=== PATIENT | female | born 2000 | race Caucasian/White ===

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

== ENCOUNTER 2020-10-24 11:53 | Emergency (ER) | payer OTHER, SELFPAY ==
[2020-10-24 12:01] VITALS: BP 128/72; PULSE 92; RESP 18; TEMP 36.9; O2SAT 100
--- NOTE | 2020-10-24 12:12 | ED.DENTAL ---
HPI - Dental/Oral General Chief complaint: Dental/Oral Stated complaint: facial swelling Time Seen by Provider: 10/24/20 12:04 Source: patient and RN notes reviewed Mode of arrival: ambulatory Limitations: no limitations History of Present Illness HPI Narrative: Patient presents today complaining of facial swelling x3 days to the right face. Denies dental pain, injury, sore throat, difficulty swallowing. She currently rates her pain 10/10. She has tried Orajel and salt water gargles without relief. Related Data Home Medications Medication Instructions Recorded Confirmed norethindrone-e.estradiol-iron 1 tablet PO DAILY 10/24/20 10/24/20 [07/07 (28)] Allergies Allergy/AdvReac Type Severity Reaction Status Date / Time No Known Allergies Allergy Verified 10/24/20 11:59 Review of Systems Review of Systems: Narrative: CONSTITUTIONAL: Denies body aches, fever, chills, or sweats. EYES: Denies visual changes, redness, or discharge. ENT: Denies rhinorrhea, congestion, sore throat, or otalgia.+ Facial swelling CARDIOVASCULAR: Denies chest pain, palpitations, or edema. RESPIRATORY: Denies cough or dyspnea. GASTROINTESTINAL: Denies abdominal pain, nausea, vomiting, or diarrhea. GENITOURINARY: Denies dysuria or hematuria. SKIN: Denies rash, itching, or wounds. MUSCULOSKELETAL: Denies back pain, joint pain, or myalgia. NEUROLOGIC: Denies headache, numbness, tingling, or weakness. PSYCH: Denies depression or anxiety. PMFSH Comments At time of signature, I have reviewed and agree with nursing past medical, surgical, social and family history unless otherwise noted. Please see nursing chart for further information. There is no relevant family history pertinent to the presenting complaint Exam Narrative: Exam Narrative: GENERAL: Well-appearing, well-nourished, and in no acute distress. HEAD: Normocephalic, atraumatic. No swelling noted to the external face. EYES: EOMI. No redness or drainage. Conjunctivae normal. ENT: Mucous membranes pink and moist. 3 cluster of 3 aphthous ulcers noted to the right lower inner lip. No tenderness or edema noted to the cheek, inner or outer aspect. No tenderness to the right upper or lower teeth. There is a portion of the swollen gumline that is overlying tooth #32 that is erythematous with a small aphthous ulcer. This area is tender to palpation and bleeds slightly with palpation. Nares clear. No rhinorrhea. TMs normal bilaterally. Throat normal. Uvula midline. NECK: Normal AROM. Supple. No lymphadenopathy. CHEST: No respiratory distress. EXTREMITIES: Normal range of motion. No edema. SKIN: Warm, dry, no rash. Capillary refill normal. Normal skin turgor. NEURO: No focal deficits. Alert and oriented x3. Gait steady. PSYCH: Normal affect. No signs of depression or anxiety. Course Vital Signs Vital signs: Vital Signs Temperature 98.4 F 10/24/20 12:01 Pulse Rate 92 10/24/20 12:01 Respiratory Rate 18 10/24/20 12:01 Blood Pressure 128/72 10/24/20 12:01 Pulse Oximetry 100 10/24/20 12:01 Temperature 98.4 F 10/24/20 12:01 Pulse Rate 92 10/24/20 12:01 Respiratory Rate 18 10/24/20 12:01 Blood Pressure 128/72 10/24/20 12:01 Pulse Oximetry 100 10/24/20 12:01 Reviewed. Pt has been instructed to follow up with her PCP regarding her elevated blood pressure today. MDM - Dental/Oral Differential Diagnosis Differential diagnosis: Likely gingival abscess, dental caries, toothache, dental abscess, fracture of tooth and aphthous ulcer Critical Care Time Critical Care Time Critical Care Time: No Discharge Plan Discharge Clinical Impression: Lesion of mouth Patient Disposition: Home, Self-Care Condition: Stable Instructions: Antibiotic Form, Canker Sores (ED) Additional Instructions: Please take the amoxicillin as prescribed until gone. Take an anti-inflammatory at home such as Aleve or ibuprofen to help with pain and swelling.
== END 2020-10-24 12:16 | disposition home or self-care (01) ==
PROVIDERS: Emergency Provider Nurse Practitioner
DX: K13.70 Unspecified lesions of oral mucosa (principal)
CPT/HCPCS: 99213; G0463

== ENCOUNTER 2020-12-18 10:00 | Emergency (ER) | payer OTHER, SELFPAY ==
[2020-12-18 10:18] VITALS: BP 129/67; PULSE 85; RESP 14; TEMP 36.6; O2SAT 100
--- NOTE | 2020-12-18 10:40 | ED.SKABFB ---
HPI - Skin/Abscess/Foreign Bdy General Chief complaint: Skin/Abscess/Foreign Body Stated complaint: left foot stung by 2 yellowjackets Source: patient Mode of arrival: ambulatory Limitations: no limitations History of Present Illness HPI narrative: Patient is a 20-year-old female who presents with left foot pain and swelling. Patient reports wearing shoes yesterday and there were two bees in shoe. Patient reports she was stung. Patient reports increased pain and swelling to left foot this am. Patient denies other injuries. Reports using ice and Benadryl with limited relief. Patient denies significant medical history. MD complaint: insect bite/sting Related Data Home Medications Medication Instructions Recorded Confirmed norethindrone-e.estradiol-iron 1 tablet PO DAILY 10/24/20 12/18/20 [07/07 (28)] Allergies Allergy/AdvReac Type Severity Reaction Status Date / Time No Known Allergies Allergy Verified 12/18/20 10:35 Review of Systems Review of Systems: Narrative: CONSTITUTIONAL: Denies fever, chills, or sweats. EYES: Denies visual changes, redness, or discharge. ENT: Denies rhinorrhea, congestion, sore throat, or otalgia. CARDIOVASCULAR: Denies chest pain, palpitations, or edema. RESPIRATORY: Denies cough or dyspnea. GASTROINTESTINAL: Denies abdominal pain, nausea, vomiting, or diarrhea. GENITOURINARY: Denies dysuria or hematuria. SKIN: Denies rash or itching. Reports swelling the left foot MUSCULOSKELETAL: Denies back pain, joint pain, or myalgia. NEUROLOGIC: Denies headache, numbness, dizziness, or weakness. PSYCHIATRIC: Denies anxiety or depression. [facility] Social History Social History (Updated 12/18/20 @ 11:21 by GRISELDA Tidwell) Smoking status: Never smoker Alcohol intake: never Substance use: never Living arrangements: with family Comments At the time of signature, I have reviewed and agree with nursing past medical, surgical, social, and family history unless otherwise noted. Please see nursing chart for further information. There is no relevant family history pertinent to the presenting complaint. Exam Narrative: Exam Narrative: GENERAL: Well-appearing, well-nourished, and in no acute distress. HEAD: Normocephalic, atraumatic. EYES: EOMI. No redness or drainage. ENT: Mucous membranes pink and moist. . CHEST: No respiratory distress. HEART: Regular rate and rhythm. No murmur appreciated. Normal peripheral pulses. EXTREMITIES: Normal range of motion. Edema and mild erythema to left lateral foot. Distal sensation intact, good pedal pulse, good capillary refill SKIN: Warm, dry, no rash. NEURO: No focal deficits. Alert and oriented x3. Gait steady. PSYCH: Normal affect. No signs of depression or anxiety. Course Vital Signs Vital signs: Vital Signs Temperature 36.6 C 12/18/20 10:18 Pulse Rate 85 12/18/20 10:18 Respiratory Rate 14 12/18/20 10:18 Blood Pressure 129/67 12/18/20 10:18 Pulse Oximetry 100 12/18/20 10:18 Temperature 36.6 C 12/18/20 10:18 Pulse Rate 85 12/18/20 10:18 Respiratory Rate 14 12/18/20 10:18 Blood Pressure 129/67 12/18/20 10:18 Pulse Oximetry 100 12/18/20 10:18 MDM - Skin/Abscess/Foreign Bdy MDM Narrative Medical decision making narrative: Patient is afebrile and nontoxic in appearance. Patient has edema to left foot from insect sting. Patient to continue to take Benadryl for relief, use ice for comfort. Patient started on prednisone at this time. Patient is aware of red flags and reasons to return or go to the emergency department. Patient is stable for discharge home with outpatient follow-up as discussed. Differential Diagnosis Differential diagnosis: Likely abscess of skin or subcutaneous tissue, viral exanthem, urticaria, cellulitis and insect bites Critical Care Time Critical Care Time Critical Care Time: No Discharge Plan Discharge Clinical Impression: Insect bites Qualifiers: Encounter type: i
== END 2020-12-18 10:58 | disposition home or self-care (01) ==
PROVIDERS: Emergency Provider Nurse Practitioner
DX: T63.461A Toxic effect of venom of wasps, accidental (unintentional), initial encounter (principal)
CPT/HCPCS: 99213; G0463

== ENCOUNTER 2021-01-19 17:11 | Emergency (ER) | payer OTHER, SELFPAY ==
[2021-01-19 17:17] VITALS: BP 122/64; PULSE 106; RESP 18; TEMP 37.2; O2SAT 100
--- NOTE | 2021-01-19 17:49 | ED.EAR ---
HPI - Ear Problem General Chief complaint: Ear Stated complaint: Possible Ear Infection Time Seen by Provider: 01/19/21 17:49 Source: patient and RN notes reviewed Mode of arrival: ambulatory Limitations: no limitations History of Present Illness HPI Narrative: 20-year-old female presents with concern for right ear pain. Reports pain started this morning. She denies nasal congestion, rhinorrhea, drainage from the ear, foreign body, fever. Reports slightly decreased hearing. Denies intervention MD Complaint: ear pain Related Data Allergies Allergy/AdvReac Type Severity Reaction Status Date / Time No Known Allergies Allergy Verified 01/19/21 17:42 Review of Systems Review of Systems: CONSTITUTIONAL: Denies malaise, chills, sweats, or fever. EYES: Denies visual changes, redness, or discharge. ENT: Denies rhinorrhea, congestion, sinus pain, and sore throat.. Reports right ear pain CARDIOVASCULAR: Denies chest pain, palpitations, or edema. RESPIRATORY: Denies cough or dyspnea. GASTROINTESTINAL: Denies abdominal pain, nausea, vomiting, diarrhea SKIN: Denies rash or itching. MUSCULOSKELETAL: Denies myalgia. NEUROLOGIC: Denies headache. All systems reviewed & are unremarkable except as noted in HPI and below PMFSH Social History Social History (Updated 12/18/20 @ 11:21 by GRISELDA Tidwell) Smoking status: Never smoker Alcohol intake: never Substance use: never Comments At time of signature, agree with nursing past medical, surgical, social and family history. There is no relevant family history pertinent to the presenting complaint Exam Narrative: GENERAL: Well-appearing, well-nourished, and in no acute distress. HEAD: Normocephalic EYES: PERRLA, conjunctivae clear ENT: Nares clear. Mucous membranes moist. TM pearly gunn with dull light reflex bilaterally; no tragal tenderness. Oropharynx not erythematous without lesions. Tonsils not enlarged and without exudate, no drooling, no hoarseness, no trismus, uvula midline. NECK: Supple. No lymphadenopathy CHEST: Clear to auscultation, breath sounds equal. No wheezing, rhonchi, rales, or stridor. No respiratory distress, speaks in full sentences. HEART: Regular rate and rhythm. No murmur heard. SKIN: Warm, dry, no rash. NEURO: Alert and oriented x3. PSYCH: Normal mood and affect Course Course Emergency Course: Patient is aware of diagnosis, understands and agrees to treatment plan. Anticipatory guidance given. Patient agrees to follow-up as directed and is aware of reasons to seek care at the emergency department. Portions of this record may have been created with voice recognition software Vital Signs Vital signs: Vital Signs Temperature 99 F 01/19/21 17:17 Pulse Rate 106 H 01/19/21 17:17 Respiratory Rate 18 01/19/21 17:17 Blood Pressure 122/64 01/19/21 17:17 Pulse Oximetry 100 01/19/21 17:17 Temperature 99 F 01/19/21 17:17 Pulse Rate 106 H 01/19/21 17:17 Respiratory Rate 18 01/19/21 17:17 Blood Pressure 122/64 01/19/21 17:17 Pulse Oximetry 100 01/19/21 17:17 Reviewed. Medical Decision Making MDM Narrative Medical decision making narrative: Differential diagnosis considered: upper respiratory tract infection, sinusitis, rhinosinusitis, nasopharyngitis. viral pharyngitis, otitis media, otitis externa, eustachian tube dysfunction, foreign body, cerumen impaction. Exam findings show no acute concerns or changes; patient is non-toxic appearing and is in no distress. Patient is appropriate for outpatient treatment and follow-up. Vital Signs Vital Signs: Vital Signs Temperature 99 F 01/19/21 17:17 Pulse Rate 106 H 01/19/21 17:17 Respiratory Rate 18 01/19/21 17:17 Blood Pressure 122/64 01/19/21 17:17 Pulse Oximetry 100 01/19/21 17:17 Temperature 99 F 01/19/21 17:17 Pulse Rate 106 H 01/19/21 17:17 Respiratory Rate 18 01/19/21 17:17 Blood Pressure 122/64 01/19/21 17:17 Pulse Oximetry 100
== END 2021-01-19 18:01 | disposition home or self-care (01) ==
PROVIDERS: Emergency Provider Nurse Practitioner
DX: H69.91 Unspecified Eustachian tube disorder, right ear (principal)
CPT/HCPCS: 99213; G0463

== ENCOUNTER 2021-09-17 15:32 | Emergency (ER) | payer OTHER, SELFPAY ==
--- NOTE | 2021-09-17 15:36 | ED.URI ---
HPI - URI/Sore Throat General Chief Complaint: Upper Respiratory Infection Stated Complaint: runny nose and cough Time Seen by Provider: 09/17/21 15:36 Source: patient and RN notes reviewed History of Present Illness HPI Narrative: Patient is a 21-year-old female who presents the urgent care with complaints of runny nose, cough and headache for the last 3 days. Patient states she has been taking Claritin, cold medication, Tylenol and ibuprofen. Patient denies of any ill contacts. Denies any fever, chills, nausea, vomiting or shortness of breath. No other acute complaints. No acute distress noted. Patient read the plan of care. Some parts of this dictation were generated by voice recognition software and may contain typographical and/or grammatical inaccuracies. Related Data Home Medications Medication Instructions Recorded Confirmed medroxyprogesterone [Depo-Provera] 150 mg IM [id number] 09/17/21 09/17/21 Allergies Allergy/AdvReac Type Severity Reaction Status Date / Time No Known Allergies Allergy Verified 09/17/21 15:57 Review of Systems Review of Systems: CONSTITUTIONAL: Denies fever, chills, or sweats. EYES: Denies visual changes, redness, or discharge. ENT: Reports of nasal congestion, rhinorrhea CARDIOVASCULAR: Denies chest pain, palpitations, or edema. RESPIRATORY: Reports of cough without dyspnea GASTROINTESTINAL: Denies abdominal pain, nausea, vomiting, or diarrhea. GENITOURINARY: Denies dysuria or hematuria. SKIN: Denies rash or itching. MUSCULOSKELETAL: Denies back pain, joint pain, or myalgia. NEUROLOGIC: Reports of intermittent headaches All other systems reviewed are negative, except as documented in HPI. PMFSH Social History Social History (Updated 12/18/20 @ 11:21 by Poppy Miranda, [employer]) Smoking status: Never smoker Alcohol intake: never Substance use: never Comments At the time of my signature, I reviewed and agree with the nursing past medical, surgical, social, and family history. There is no relevant family history pertinent to the patient complaint. Exam Narrative: GENERAL: This is a well-nourished, well-developed patient, in no apparent distress. HEAD: normocephalic, atraumatic. EYES: PERRL. Sclera clear/white. Vision is grossly intact. EARS: External ears normal, auditory canals clear and without drainage, TMs normal without perforation. Hearing grossly intact. NOSE: External nose normal with no obvious nasal discharge, nares without redness, clear to yellow rhinorrhea. THROAT: Mucous membranes moist, posterior pharynx clear. Moderate postnasal drainage NECK: Neck supple CARDIOVASCULAR: Regular rate and rhythm without murmurs, gallops, or rubs. RESPIRATORY: Clear to auscultation. Breath sounds equal bilaterally. No wheezes, rales, or rhonchi. SKIN: warm, intact with no suspicious lesions or rash, good texture and turgor. NEURO: awake, alert, and oriented to person, place and time. There were no obvious focal neurologic abnormalities. EXTREMITIES: No clubbing, cyanosis, or edema. Course Course Level of Care: Express Care Visit Vital Signs Vital signs: Vital Signs Temperature 98.9 F 09/17/21 15:41 Pulse Rate 91 09/17/21 15:41 Respiratory Rate 20 09/17/21 15:41 Pulse Oximetry 98 09/17/21 15:41 Temperature 98.9 F 09/17/21 15:41 Pulse Rate 91 09/17/21 15:41 Respiratory Rate 20 09/17/21 15:41 Pulse Oximetry 98 09/17/21 15:41 Reviewed MDM - URI/Sore Throat MDM Narrative Medical decision making narrative: Advised the patient to use it daily Claritin or Zyrtec in the morning. Use Flonase and Benadryl prior to bedtime. Symptoms are consistent with a common cold and the viral syndrome can last approximately 21 days. Do not sleep with the windows open or a fan. Use a humidifier at night. Increase your water intake and rest. Follow-up with your PCP within 2 to 5 days or for worsening symptoms or failure to improve. Differential Diagnosis Differ
[2021-09-17 15:41] VITALS: BP 131/72; PULSE 91; RESP 20; TEMP 37.2; O2SAT 98
== END 2021-09-17 16:10 | disposition home or self-care (01) ==
PROVIDERS: Emergency Provider Nurse Practitioner Family
DX: J00 Acute nasopharyngitis [common cold] (principal)
CPT/HCPCS: 99213; G0463

== ENCOUNTER 2021-12-09 10:05 | Emergency (ER) | payer OTHER, SELFPAY ==
[2021-12-09 10:09] VITALS: BP 126/64; PULSE 97; RESP 14; TEMP 37.7; O2SAT 98
[2021-12-09 10:16] VITALS: BP 126/64; PULSE 97; RESP 14; TEMP 37.7; O2SAT 98
--- NOTE | 2021-12-09 10:21 | ED.URI ---
HPI - URI/Sore Throat General Chief Complaint: Upper Respiratory Infection Stated Complaint: cough Time Seen by Provider: 12/09/21 10:20 Source: patient Mode of arrival: ambulatory Limitations: no limitations History of Present Illness HPI Narrative: Ms. Shafer is a 21-year-old female patient presenting to the clinic today with complaints of a cough x2 weeks. Patient reports that she is bringing up some yellow phlegm with her cough. She denies any runny nose, nasal congestion, sore throat, fever, or chills. Tested for COVID last week and was negative. MD elicited complaint: cough Related Data Home Medications Medication Instructions Recorded Confirmed medroxyprogesterone 150 mg/mL 150 mg IM [id number] 09/17/21 12/09/21 intramuscular syringe (Depo-Provera) Allergies Allergy/AdvReac Type Severity Reaction Status Date / Time No Known Allergies Allergy Verified 12/09/21 10:14 Review of Systems Review of Systems: Pertinent positives per HPI. Patient denies any fever, chills, rash, headache, visual changes, dizziness, shortness of breath, chest pain, palpitations, nausea, vomiting, diarrhea, constipation, abdominal pain, or any urinary issues. PMFSH Social History Social History Smoking status: Never smoker Alcohol intake: never Substance use: never Comments At the time of my signature, I reviewed and agree with the nursing past medical, surgical, social, and family history. There is no relevant family history pertinent to the patient complaint. Exam Narrative: General: Well-developed, well nourished, in no apparent distress Head: Normocephalic, atraumatic Eyes: Pupils equally round and reactive to light bilaterally, EOM intact, sclera and conjunctive clear, no discharge, lids normal Ears: TMs intact and clear, ear canals clear, no drainage, grossly hearing normal. Nose: Nares patent, clear discharge, no inflammation, no sinus tenderness. Mouth: Oral pharynx without lesions or masses, good dentition, MMM. Neck: Supple, trachea midline, no enlargement of anterior or posterior cervical nodes, no thyroid masses or goiter palpable. Cardio: Regular rate and rhythm, s1 and s2 normal, no murmur appreciated. Resp: Clear to auscultation bilaterally, no rhonchi, rales, wheezing or rubs Course Course Emergency Course: Portions of this record may have been created with voice recognition software. Level of Care: Express Care Visit Vital Signs Vital signs: Vital Signs Temperature 37.7 C H 12/09/21 10:09 Pulse Rate 97 12/09/21 10:09 Respiratory Rate 14 12/09/21 10:09 Blood Pressure 126/64 12/09/21 10:09 Pulse Oximetry 98 12/09/21 10:09 Oxygen Delivery Room Air 12/09/21 10:09 Temperature 37.7 C H 12/09/21 10:16 Pulse Rate 97 12/09/21 10:16 Respiratory Rate 14 12/09/21 10:16 Blood Pressure 126/64 12/09/21 10:16 Pulse Oximetry 98 12/09/21 10:16 Oxygen Delivery Room Air 12/09/21 10:16 Vital signs reviewed MDM - URI/Sore Throat MDM Narrative Medical decision making narrative: As time of visit patient was resting comfortably on the exam table. She reports a productive cough at times. She is currently vaping. Denies any runny nose or congestion. I suspect this cough is from her vaping. We will go ahead and give her a prescription for albuterol inhaler that she has periods of coughing and shortness of breath. Supportive measures were discussed with the patient and she was advised to quit vaping. She voiced understanding of discharge instructions and agreed to the treatment plan. Differential Diagnosis Differential diagnosis: Likely upper respiratory infection, sinusitis, viral infection, bronchitis, influenza, pharyngitis and other (COVID) Discharge Plan Discharge Clinical Impression: Cough Patient Disposition: Home, Self-Care Condition: Stable Instructions: Acute Cough (ED) A
== END 2021-12-09 10:26 | disposition home or self-care (01) ==
PROVIDERS: Emergency Provider Nurse Practitioner Family
DX: R05.9 Cough, unspecified (principal)
CPT/HCPCS: 99213; G0463

== ENCOUNTER 2022-11-15 16:58 | Emergency (ER) | payer OTHER, SELFPAY ==
--- NOTE | 2022-11-15 17:05 | ED.SKABFB ---
HPI - Skin/Abscess/Foreign Bdy General Chief complaint: Skin/Abscess/Foreign Body Stated complaint: stung bottom of foot/allergic Time Seen by Provider: 11/15/22 17:48 Source: patient and RN notes reviewed Mode of arrival: ambulatory Limitations: no limitations History of Present Illness HPI narrative: 22-year-old female presents with concern for insect sting to the bottom of her right foot. Reports she was walking barefoot in the grass prior to arrival when she felt a sting on the bottom of her foot. She reports her foot is red and painful. She denies swollen lips, swollen tongue, trouble breathing, rash or hives. MD complaint: insect bite/sting Related Data Home Medications Medication Instructions Recorded Confirmed medroxyprogesterone 150 mg/mL 150 mg IM [id number] 09/17/21 11/15/22 intramuscular syringe (Depo-Provera) atomoxetine 40 mg capsule 40 mg PO DAILY 11/15/22 11/15/22 Allergies Allergy/AdvReac Type Severity Reaction Status Date / Time No Known Allergies Allergy Verified 11/15/22 17:41 Review of Systems Review of Systems: CONSTITUTIONAL: Denies malaise, chills, sweats, or fever. EYES: Denies redness, or discharge. ENT: Denies rhinorrhea, congestion, swollen lips, swollen tongue CARDIOVASCULAR: Denies chest pain, palpitations, or edema. RESPIRATORY: Denies cough or dyspnea. GASTROINTESTINAL: Denies abdominal pain, nausea, vomiting SKIN: Reports insect sting to the bottom of the right foot MUSCULOSKELETAL: Denies joint pain or myalgia. NEUROLOGIC: Denies headache. All systems reviewed & are unremarkable except as noted in HPI and below PMFSH Social History Social History Smoking status: Never smoker Alcohol intake: never Substance use: never Living arrangements: with family Comments At time of signature, agree with nursing past medical, surgical, social and family history. There is no relevant family history pertinent to the presenting complaint Exam Narrative: GENERAL: Well-appearing, well-nourished, and in no acute distress. HEAD: Normocephalic, atraumatic. EYES: PERRLA, conjunctivae clear, and EOMI. ENT: Mucous membranes moist. Oropharynx without edema, erythema or lesions. NECK: Supple. No lymphadenopathy CHEST: Clear to auscultation. No respiratory distress. HEART: Regular rate and rhythm. SKIN: Warm, dry. No rash noted, no stinger noted, very small red macule noted on the dorsal aspect of the right foot without erythema, induration, swelling, warmth. NEURO: Alert and oriented x3. PSYCH: Normal mood and affect Course Course Emergency Course: Patient is aware of diagnosis, understands and agrees to treatment plan. Anticipatory guidance given. Patient agrees to follow-up as directed and is aware of reasons to seek care at the emergency department. Portions of this record may have been created with voice recognition software Level of Care: Express Care Visit Vital Signs Vital signs: Reviewed. MDM - Skin/Abscess/Foreign Bdy MDM Narrative Medical decision making narrative: Does not appear at this time to be erythema multiforme, bullous, SJS, TEN; no evidence at this time to suggest RMSF, endocarditis or Lyme disease; patient looks well, nontoxic and is tolerating oral intake; no neurologic signs or symptoms; no headache, photophobia or neck pain; afebrile; appropriate for initial outpatient treatment; discussed the importance of follow-up, patient agrees; question, viral exanthema, contact dermatitis, allergic dermatitis, eczema, urticaria, insect sting. No soft palate or uvula edema, no tongue, lip edema or other mucosal involvement, no respiratory compromise, no stridor, no wheezing, no wheezing, no history of syncope, no hypotension, no nausea, vomiting, or diarrhea. Instructed patient to go to nearest ER immediately for any worsening symptoms including but not limited to: fever, spreading rash, pain, sore
[2022-11-15 17:08] VITALS: BP 136/64; PULSE 98; RESP 18; TEMP 37.4; O2SAT 100
== END 2022-11-15 17:56 | disposition home or self-care (01) ==
PROVIDERS: Emergency Provider Nurse Practitioner; PCP Nurse Practitioner Family
DX: T63.481A Toxic effect of venom of other arthropod, accidental (unintentional), initial encounter (principal)
CPT/HCPCS: 99212; G0463

== ENCOUNTER 2023-02-21 09:28 | Emergency (ER) | payer OTHER, SELFPAY ==
[2023-02-21 09:42] VITALS: BP 119/74; PULSE 106; RESP 18; TEMP 36.9; O2SAT 98
--- NOTE | 2023-02-21 09:59 | ED.URI ---
HPI - URI/Sore Throat General Chief Complaint: Upper Respiratory Infection Stated Complaint: congestion Time Seen by Provider: 02/21/23 09:50 Source: patient Mode of arrival: ambulatory Limitations: no limitations History of Present Illness HPI Narrative: Yudi is a 22-year-old female patient presenting to clinic today with complaints of cough, congestion, headache, and losing her voice times 6 days. She denies any known fever or chills. MD elicited complaint: cough, sore throat, rhinorrhea, nasal congestion and other (Headache) Related Data Home Medications Medication Instructions Recorded Confirmed medroxyprogesterone 150 mg/mL 150 mg IM [id number] 09/17/21 02/21/23 intramuscular syringe (Depo-Provera) Allergies Allergy/AdvReac Type Severity Reaction Status Date / Time No Known Allergies Allergy Verified 02/21/23 09:55 Review of Systems Review of Systems: Pertinent positives per HPI. Patient denies any fever, chills, rash, visual changes, dizziness, shortness of breath, chest pain, palpitations, nausea, vomiting, diarrhea, constipation, abdominal pain, or any urinary issues. PMFSH Social History Social History Smoking status: Never smoker Alcohol intake: never Substance use: never Living arrangements: with family Comments At the time of my signature, I reviewed and agree with the nursing past medical, surgical, social, and family history. There is no relevant family history pertinent to the patient complaint. Exam Narrative: General: Well-developed, well nourished, in no apparent distress Head: Normocephalic, atraumatic Eyes: Pupils equally round and reactive to light bilaterally, EOM intact, sclera and conjunctive clear, no discharge, lids normal Ears: TMs intact and congested, ear canals clear, no drainage, grossly hearing normal. Nose: Nares patent, clear nasal discharge, no inflammation, no sinus tenderness. Mouth: Oral pharynx red with bilateral tonsillar enlargement without lesions or masses, good dentition, MMM. Postnasal drip Neck: Supple, trachea midline, mild enlargement of anterior cervical nodes, no thyroid masses or goiter palpable. Cardio: Regular rate and rhythm, s1 and s2 normal, no murmur appreciated. Resp: Clear to auscultation bilaterally, no rhonchi, rales, wheezing or rubs Course Course Emergency Course: Portions of this record may have been created with voice recognition software. Level of Care: Express Care Visit Vital Signs Vital signs: Vital Signs Temperature 36.9 C 02/21/23 09:42 Pulse Rate 106 H 02/21/23 09:42 Respiratory Rate 18 02/21/23 09:42 Blood Pressure 119/74 02/21/23 09:42 Pulse Oximetry 98 02/21/23 09:42 Oxygen Delivery Room Air 02/21/23 09:42 Temperature 36.9 C 02/21/23 09:42 Pulse Rate 106 H 02/21/23 09:42 Respiratory Rate 18 02/21/23 09:42 Blood Pressure 119/74 02/21/23 09:42 Pulse Oximetry 98 02/21/23 09:42 Oxygen Delivery Room Air 02/21/23 09:42 Vital signs reviewed MDM - URI/Sore Throat MDM Narrative Medical decision making narrative: At the time of visit patient is resting comfortably on the exam table. Strep screen was obtained was positive. I suspect patient has a URI with strep pharyngitis. Prescription for prednisone and Augmentin was sent to the pharmacy. Supportive measures were discussed with the patient she voiced understanding discharge instructions and agrees to treatment plan. Differential Diagnosis Differential diagnosis: Likely upper respiratory infection, sinusitis, viral infection, bronchitis, influenza, pharyngitis and other (COVID) Discharge Plan Discharge Clinical Impression: Strep pharyngitis Upper respiratory infection Qualifiers: URI type: unspecified URI Qualified Code(s): J06.9 - Acute upper respiratory infection, unspecified Patient Disposition: Home, Self-Care Condition: Stable
== END 2023-02-21 10:15 | disposition home or self-care (01) ==
PROVIDERS: Emergency Provider Nurse Practitioner Family; PCP Nurse Practitioner Family
DX: J02.0 Streptococcal pharyngitis (principal)
CPT/HCPCS: 87880; 99213; G0463

== ENCOUNTER 2023-08-25 09:36 | Emergency (ER) | payer OTHER, SELFPAY ==
[2023-08-25 09:42] VITALS: BP 118/74; PULSE 98; RESP 20; TEMP 37.6; O2SAT 100
--- NOTE | 2023-08-25 10:02 | ED.URI ---
HPI - URI/Sore Throat General Chief Complaint: Upper Respiratory Infection Stated Complaint: sob/headache/nausea Time Seen by Provider: 08/25/23 10:03 Source: patient, RN notes reviewed and old records reviewed Mode of arrival: ambulatory Limitations: no limitations History of Present Illness HPI Narrative: 23 year old female presents to [facility] care with complaints of headache, sore throat, some shortness of breath and cough since last night, Patient reports that she can hardly eat and she can't breathe. Patient reports that she has had some chills but denies any fevers, Patient states that she has taken some cold medication for her symptoms. Patient has no tachypnea noted, no retraction and lungs clear to auscultation, SAO2 100% on room air, reports some cough which is nonproductive MD elicited complaint: cough and sore throat Onset (ago): day(s) (day 2 of symptoms) Severity: moderate Description of mucous: clear Able to tolerate fluids by mouth: Yes Exacerbating factors: swallowing Treatments prior to arrival: cold medicine Related Data Home Medications Medication Instructions Recorded Confirmed medroxyprogesterone 150 mg/mL 150 mg IM [id number] 09/17/21 08/25/23 intramuscular syringe (Depo-Provera) atomoxetine 60 mg capsule mg PO 08/25/23 (Strattera) Allergies Allergy/AdvReac Type Severity Reaction Status Date / Time No Known Allergies Allergy Verified 08/25/23 09:46 Review of Systems Review of Systems: CONSTITUTIONAL: Reports malaise, chills,no sweats, or fever. EYES: Denies visual changes, redness, or discharge. ENT: Reports rhinorrhea, congestion, sinus pain, no otalgia and positive for sore throat. CARDIOVASCULAR: Denies chest pain, palpitations, or edema. RESPIRATORY: Reports cough.? Denies acute dyspnea. GASTROINTESTINAL: Denies abdominal pain,some stated nausea,no vomiting, diarrhea SKIN: Denies rash or itching. MUSCULOSKELETAL: Denies myalgia. NEUROLOGIC: Reports headache. All systems reviewed & are unremarkable except as noted in HPI and below PMFSH Past Medical History Medical History (Updated 08/26/23 @ 00:01 by Erika Easley) ADHD (attention deficit hyperactivity disorder) Social History Social History (Updated 08/26/23 @ 08:05 by Desirae Patricia NP) Smoking status: Current every day smoker Tobacco type: e-cigarettes/vaping Alcohol intake: never Substance use: never Living arrangements: with family Gender identity (if verbalized by the patient): Female Comments At time of signature, agree with nursing past medical, surgical, social and family history. There is no relevant family history pertinent to the presenting complaint Exam Narrative: GENERAL: Well-appearing, well-nourished, and in no acute distress. HEAD: Normocephalic EYES: PERRLA, conjunctivae clear ENT: Nares clear, turbinates edematous and erythematous, clear discharge. Mucous membranes moist. TM pearly gunn with dull light reflex bilaterally; no tragal tenderness. Oropharynx erythematous without lesions. Tonsils not enlarged and without exudate, no drooling, no hoarseness, no trismus, uvula midline.post nasal drainage. NECK: Supple. No lymphadenopathy CHEST: Clear to auscultation, breath sounds equal. No wheezing, rhonchi, rales, or stridor. No respiratory distress, speaks in full sentences.SAO2 100% on room air no tachypnea. HEART: Regular rate and rhythm. No murmur heard. SKIN: Warm, dry, no rash. NEURO: Alert and oriented x3. PSYCH: Normal mood and affect Course Course Emergency Course: Patient is aware of diagnosis, understands and agrees to treatment plan.? Anticipatory guidance given.? Patient agrees to follow-up as directed and is aware of reasons to seek care at the emergency department. Portions of this record may have been created with voice recognition software Level of Care: Express Care Visit Vital Signs Vital signs: Vital Signs Te
== END 2023-08-25 10:39 | disposition home or self-care (01) ==
PROVIDERS: Emergency Provider Registered Nurse
DX: J02.0 Streptococcal pharyngitis (principal); B95.0 Streptococcus, group A, as the cause of diseases classified elsewhere; Z20.822 Contact with and (suspected) exposure to COVID-19; F17.290 Nicotine dependence, other tobacco product, uncomplicated
CPT/HCPCS: 87081; 87147; 87426; 87804; 87880; 99213; G0463

== ENCOUNTER 2024-12-01 09:46 | Emergency (ER) | payer OTHER, SELFPAY ==
[2024-12-01 09:52] VITALS: BP 119/75; PULSE 87; RESP 14; TEMP 37; O2SAT 100
--- NOTE | 2024-12-01 10:25 | ED_ITS ---
HPI - URI/Sore Throat General Chief Complaint: Upper Respiratory Infection Stated Complaint: Cough Time Seen by Provider: 12/01/24 10:25 Source: patient Mode of arrival: ambulatory Limitations: no limitations History of Present Illness HPI Narrative: 24-year-old female presents with complaint of sinus pressure, headaches, coughing for 10 days. Febrile. Did try DayQuil NyQuil cold and Sinus without relief of symptoms. No chest pain or shortness of breath. Patient states her younger sister has bronchitis, was wheezing yesterday. All systems reviewed and negative except as noted above. Related Data Home Medications ?Medication ?Instructions ?Recorded ?Confirmed ?Last Taken ?Type medroxyprogesterone 150 mg/mL 150 mg IM [id number] 09/17/21 08/25/23 Unknown History intramuscular syringe (Depo-Provera) Allergies Allergy/AdvReac Type Severity Reaction Status Date / Time No Known Allergies Allergy Verified 12/01/24 09:59 Review of Systems Review of Systems: CONSTITUTIONAL: Denies fever, chills, or sweats. EYES: Denies visual changes, redness, or discharge. ENT: reports rhinorrhea, congestion, sinus pressure. Denies sore throat, or otalgia. CARDIOVASCULAR: Denies chest pain, palpitations, or edema. RESPIRATORY: Reports cough. Denies dyspnea. GASTROINTESTINAL: Denies abdominal pain, nausea, vomiting, or diarrhea. GENITOURINARY: Denies dysuria or hematuria. SKIN: Denies rash or itching. MUSCULOSKELETAL: Denies back pain, joint pain, or myalgia. NEUROLOGIC: Denies headache, numbness, or weakness. PSYCHIATRIC: Denies anxiety or depression. All other systems reviewed are negative, except as documented in HPI. [facility] Past Medical History Medical History (Updated 12/01/24 @ 10:28 by Elda Stearns NP) ADHD (attention deficit hyperactivity disorder) Social History Social History (Updated 08/26/23 @ 08:05 by Desirae Patricia NP) Smoking status: Current every day smoker Tobacco type: e-cigarettes/vaping Alcohol intake: never Substance use: never Living arrangements: with family Gender identity (if verbalized by the patient): Female Comments At time of signature, agree with nursing past medical, surgical, social and family history. There is no relevant family history pertinent to the presenting complaint. Exam Narrative: GENERAL: This is a well-nourished, well-developed patient, in no apparent distress. HEAD: normocephalic, atraumatic. EYES: PERRL. Sclera clear/white. Vision is grossly intact. EARS: External ears normal, auditory canals clear and without drainage, TMs normal without perforation. Hearing grossly intact. NOSE: External nose normal with congestion, purulent nasal drainage, erythema to bilateral nares. Maxillary sinus tenderness on palpation bilaterally. THROAT: Mucous membranes moist, Erythema postnasal drainage. No swelling or exudates. NECK: Neck supple, non-tender without lymphadenopathy, masses or thyromegaly. CARDIOVASCULAR: Regular rate and rhythm without murmurs, gallops, or rubs. RESPIRATORY: Clear to auscultation. Breath sounds equal bilaterally. No wheezes, rales, or rhonchi. SKIN: warm, Dry, intact with no suspicious lesions or rash, good texture and turgor. NEURO: awake, alert, and oriented to person, place and time. There were no obvious focal neurologic abnormalities. EXTREMITIES: No joint tenderness, effusion, or edema noted. Course Course Level of Care: Express Care Visit Vital Signs Vital signs: Vital Signs Temperature 37.0 C 12/01/24 09:52 Pulse Rate 87 12/01/24 09:52 Respiratory Rate 14 12/01/24 09:52 Blood Pressure 119/75 12/01/24 09:52 Pulse Oximetry 100 12/01/24 09:52 Oxygen Delivery Room Air 12/01/24 09:52 Temperature 37.0 C 12/01/24 09:52 Pulse Rate 87 12/01/24 09:52 Respiratory Rate 14 12/01/24 09:52 Blood Pressure 119/75 12/01/24 09:52 Pulse Oximetry 100 12/01/24 09:52 Oxygen Delivery Room Air 12/01/24 09:52 Reviewed MDM - URI/Sore Throat MDM Narrative Medical decision making narrative: will treat patient with antibiotic for bacterial sinusitis due to patient's duration of symptoms and exam findings. Patient is well-appearing, nontoxic. Patient agrees with plan of care. Differential Diagnosis Differential diagnosis: Likely upper respiratory infection, sinusitis, viral infection and pharyngitis Discharge Plan Discharge Clinical Impression: Acute bacterial sinusitis Patient Disposition: Home Condition: Stable Instructions: Antibiotic Form, Sinusitis (ED) Additional Instructions: take medications as prescribed. Take Tylenol or ibuprofen every 6-8 hours as needed for pain. Drink at least 64 [address] a day. [address] cool mist humidifier in bedroom where you sleep. See your doctor symptoms are not improving. Patient Language: Czech Prescriptions: New benzonatate 200 mg capsule 200 mg PO TID PRN (Reason: cough) Qty: 20 0RF methylprednisolone [Medrol ([place])] 4 mg tablets,dose pack See Rx Instructions PO .COMPLEX Qty: 21 0RF Rx Instructions: orally per package directions amoxicillin-pot clavulanate 875-125 mg tablet 1 tablet PO Q12H 7 Days Qty: 14 0RF Claritin-D 12 Hour 5-120 mg tablet extended release 12 hr 1 tablet PO Q12H PRN (Reason: nasal congestion) Qty: 20 0RF No Action medroxyprogesterone [Depo-Provera] 150 mg/mL Syringe 150 mg IM [id number] Follow-up/Referrals: UNKNOWN,DOCTOR [Primary Care Provider] - Time of Disposition: 10:30
--- OUTSIDE RECORDS SUMMARY | 2024-12-01 10:25 | XMS_ITS | Referral Summary ---
Author Organization [facility] Address [address] [place] [address] Care Team Providers Care Carbonizer Name Role Phone Unknown, Notinfile Primary Care Provider Unavail able Allergies No known active allergies Medications medroxyPROGEST ERone 150 mg/mL injection INJECT 1ML INTRAMUSCULARY EVERY 3 MONTHS DIRECTED 3 Active carbamide peroxide (DEBROX) 6.5 % otic solutionIndica tions:Impacted Cerumen Administer 5 drops into the right ear 2 (two) times a day 15 mL 3 Active Active Problems No known active problems Social History Tobacco Use Types Packs/Day Years Used Date Smoking Tobacco: Never Assessed Comments No Sex and Gender Information Value Date Recorded Sex Assigned at Not on file 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 Gender Identity Not on file Sexual Orientation Not on file Last Filed Vital Signs Vital Sign Reading Time Taken Comments Blood Pressure 128/76 05/09/2023 4:42 PM COAL WHEELER Pulse 84 05/09/2023 4:42 PM COAL WHEELER Temperature 36.4 C (97.6 F) 05/09/2023 4:42 PM COAL WHEELER Respiratory Rate 18 05/09/2023 4:42 PM COAL WHEELER Oxygen Saturation 99% 05/09/2023 4:42 PM COAL WHEELER Inhaled Oxygen Concentration - - Weight 72.6 kg (160 lb) 05/09/2023 4:42 PM COAL WHEELER Height 157.5 cm (5' 2) 05/09/2023 4:42 PM COAL WHEELER Body Mass Index 29.26 05/09/2023 4:42 PM COAL WHEELER Plan of Treatment Not on file [place] [address] [address] [place] [address] [facility] Care Teams Carbonizer Relationship Specialty Start Date End Date Unknown, Notinfile PCP - General 05/09/23
--- OUTSIDE RECORDS SUMMARY | 2024-12-01 10:25 | XMS_ITS | Clinical Summary ---
Author Organization [facility] Address [address] [place] [address] Care Team Providers Care Wrap Turner Name Role Phone Provider, None Primary Care Provider Unavailabl e Social History Tobacco Use Types Packs/Day Years Used Date Smoking Tobacco: Never Assessed Comments Unknown Sex and Gender Information Value Date Recorded Sex Assigned at Not on file Legal Sex Female 12:01 AM CDT Gender Identity Not on file Sexual Orientation Not on file Plan of Treatment Health Maintenance Due Date Last Done Comments Hepatitis C Virus (HCV) Screening 2000 Pap Smear 2021 Influenza Immunization (#1) 02/17/202404/19, 04/13/2017, 03/28/2016, Additional history exists SARS-COV-2 Immunization (2023- season) 2024 Respiratory Syncytial Virus (RSV) Immunization (Adult) (1 - 1-dose 75+ series) 2075 Pneumococcal Immunization Combined Aged Out 2000 No longer eligible based on patient's age to complete this topic Hepatitis B Immunization Completed 001, 2000, 2000 DTaP/Tdap/Td Immunization Discontinued 2010, 11/17/2004, 08/05/2002, Additional history exists TdaP Immunization Completed 08/04/2010 Human Papillomavirus (HPV) Immunization Completed 10/28/2012, 06/24/2012, 02/12/2012 Meningococcal Immunization (ACWY) Completed 04/13/2017, 07/31/2011 Meningococcal B Immunization Discontinued 05/07/2018, 04/13/2017 Rotavirus Immunization Aged Out No lo nger eligible based on patient's age to complete this topic Insurance MEDICAID [place] Care Teams Wrap Turner Relationship Specialty Start Date End Date Provider, None [place] PCP - General 10/25/21
--- OUTSIDE RECORDS SUMMARY | 2024-12-01 10:25 | XMS_ITS | Clinical Summary ---
Author Organization 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 Gender Identity Not on file Sexual Orientation Not on file Obstetrics History Last Filed Vital Signs Vital Sign Reading Time Taken Comments Blood Pressure 128/76 05/09/2023 4:42 PM CLAY MINE CUTTING MACHINE OPERATOR Pulse 84 05/09/2023 4:42 PM CLAY MINE CUTTING MACHINE OPERATOR Temperature 36.4 C (97.6 F) 05/09/2023 4:42 PM CLAY MINE CUTTING MACHINE OPERATOR Respiratory Rate 18 05/09/2023 4:42 PM CLAY MINE CUTTING MACHINE OPERATOR Oxygen Saturation 99% 05/09/2023 4:42 PM CLAY MINE CUTTING MACHINE OPERATOR Inhaled Oxygen Concentration - - Weight 72.6 kg (160 lb) 05/09/2023 4:42 PM CLAY MINE CUTTING MACHINE OPERATOR Height 157.5 cm (5' 2) 05/09/2023 4:42 PM CLAY MINE CUTTING MACHINE OPERATOR Body Mass Index 29.26 05/09/2023 4:42 PM CLAY MINE CUTTING MACHINE OPERATOR Plan of Treatment Health Maintenance Due Date Last Done Comments Cervical Cancer Screening 2000 Depression Screening 2000 Hepatitis C Screening 2000 Regular Well Visit/Exam 18-64 2018 Influenza Vaccine (Season Ended) 2025 04/20/2023, 03/23/2022, 05/07/2018, Additional history exists DTaP/Tdap/Td Vaccine (8 - Td or Tdap) 09/01/2032 09/01/2022, 08/04/2010, 11/17/2004, Additional history exists Pneumococcal vaccine <65 Aged Out 2000 No longer eligible based on patient's age to complete this topic Hepatitis B Screening Completed 01/03/2001 , 2000, 2000 Varicella Vaccines Completed 12/21/2008, 08/05/2002 HPV Vaccines Completed 10/28/2012, 12/2012, 02/12/2012 Insurance [facility] Care Teams Cross Tie Tram Loader Relationship Specialty Start Date End Date Unknown, Notinfile PCP - General 05/09/23
== END 2024-12-01 10:34 | disposition home or self-care (01) ==
PROVIDERS: Emergency Provider Nurse Practitioner Family
DX: J01.90 Acute sinusitis, unspecified (principal); F17.290 Nicotine dependence, other tobacco product, uncomplicated
CPT/HCPCS: 99213; G0463